=== PATIENT | female | born 1990 | race African-American/Black ===

== ENCOUNTER 2016-11-05 21:52 | Emergency (ER) | payer MEDICAID ==
[~2016-11-05] VITALS: Ht 172.7 cm; Wt 66.0 kg
[~2016-11-05 21:52] MED LIST: CEPH500C3 PO; FIORIC PO; LORTA5 PO; PROM25TA5 PO
[2016-11-05 21:59] VITALS: BP 101/51; PULSE 88; RESP 20; TEMP 98; O2SAT 98
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
[2016-11-05] MEDS: PROPARACAINE HCL 0.5% OPHT SOLN 15 ML BTL RIGHT EYE ONE ×2 (23:20→23:25)
[2016-11-06] MEDS ORDERED: CYCL1TAB29 PO (00:01)
[2016-11-06] MEDS ORDERED: ERYTOIN10 RIGHT EYE (00:01)
[2016-11-06] MEDS ORDERED: NAPR500 PO (00:01)
== END 2016-11-06 00:22 | disposition home or self-care (01) ==
LOC: NEPD 21:52
DX: T14.8 Other injury of unspecified body region (principal); H57.11 Ocular pain, right eye; X58.XXXA Exposure to other specified factors, initial encounter
CPT/HCPCS: 99284

== ENCOUNTER 2017-03-10 17:35 | Emergency (ER) | payer MEDICAID ==
[~2017-03-10] VITALS: Ht 167.6 cm; Wt 72.0 kg
[~2017-03-10 17:35] MED LIST changes: -CEPH500C3 PO; +CYCL10TA PO; +ERYTOIN10 RIGHT EYE; -FIORIC PO; -LORTA5 PO; +NAPR500 PO; -PROM25TA5 PO
--- NOTE | 2017-03-10 17:44 | PD ---
HPI Chief Complaint: Rectal Bleeding Time Seen by Provider: 17:42 Travel History International Travel<30 days: No Contact w/Intl Traveler<30days: No Traveled to known affect area: No History of Present Illness HPI 26-year-old Afro-[place] Citizen female presents the emergency department with a one- week history of rectal pain with DM, constipation, and bleeding DM. Patient denies history of hemorrhoids in the past. Patient states the pain is constant and knifelike. Patient has no history of this in the past. She denies rectal sex or other type activity. Patient states she's been using [id number] stool soft and laxatives without improvement. She denies nausea vomiting or fever. She has no known drug allergies. PFSH Past Medical History Hx Anticoagulant Therapy: No Cardiovascular Problems: No Chemotherapy: No Cerebrovascular Accident: No Diabetes: No Diminished Hearing: No Respiratory: No Immunizations Current: Yes Menopausal: No : 4 Para: 4 Miscarriage: 0 : 1 Tubal Ligation: Yes Past Surgical History Section: Yes (X3) Social History Alcohol Use: No Tobacco Use: Yes Substance Use: No Allergies-Medications (Allergen,Severity, Reaction): Coded Allergies: No Known Allergies (Verified Adverse Reaction, Unknown, 03/10/17) Reported Meds & Prescriptions Reported Meds & Active Scripts Active Rectiv (Nitroglycerin (Intra-Anal)) 0.4 % (W/W) Oin 1 Applic RC BID 60 Days Lidocaine Topical (Lidocaine HCl) 2 % Jel 1 Applic TOPICAL QID Review of Systems Except as stated in HPI: all other systems reviewed are Neg General / Constitutional: No: Fever Eyes: No: Visual changes HENT: No: Headaches Cardiovascular: No: Chest Pain or Discomfort Respiratory: No: Shortness of Breath Gastrointestinal: Positive: Constipation, Other (see history present illness), No: Nausea, Vomiting, Abdominal Pain, Hematemesis, Hematochezia Genitourinary: No: Dysuria Musculoskeletal: No: Pain Skin: No Rash Neurologic: No: Weakness Psychiatric: No: Depression Endocrine: No: Polydipsia Hematologic/Lymphatic: No: Easy Bruising Physical Exam Narrative GENERAL: Patient appears in no acute distress. SKIN: Warm and dry. No color. Normal turgor. HEAD: Atraumatic. Normocephalic. EYES: Pupils equal and round. No scleral icterus. No injection or drainage. ENT: No nasal bleeding or discharge. Mucous membranes pink and moist. NECK: Trachea midline. No JVD. CARDIOVASCULAR: Regular rate and rhythm. RESPIRATORY: No accessory muscle use. Clear to auscultation. Breath sounds equal bilaterally. GASTROINTESTINAL: Abdomen soft, non-tender, nondistended. Hepatic and splenic margins not palpable. RECTAL: Rectal area is examined with nursing staff present. Outer area appears normal. There appears to be a small fissure at the 3 o'clock position without active bleeding. No signs of external hemorrhoids are noted. Internal exam very tender with spasming internal rectal ring. No internal hemorrhoids are present. MUSCULOSKELETAL: Extremities without clubbing, cyanosis, or edema. No obvious deformities. NEUROLOGICAL: Awake and alert. No obvious cranial nerve deficits. Motor grossly within normal limits. Five out of 5 muscle strength in the arms and legs. Normal speech. PSYCHIATRIC: Appropriate mood and affect; insight and judgment normal. Data Data Last Documented VS Vital Signs Date Time Temp Pulse Resp B/P (MAP) Pulse Ox O2 Delivery O2 Flow Rate FiO2 03/10/17 18:31 03/10/17 17:51 98.3 71 17 99 Room Air Orders Orders Ed Discharge Order (03/10/17 18:07) MDM Medical Decision Making Medical Screen Exam Complete: Yes Emergency Medical Condition: Yes Differential Diagnosis Rectal pain. Constipation. Rectal fissure. Narrative Course Patient is felt to have a rectal fissure which will be treated with 2% lidocaine jelly 4 times a day 30 mL was dispensed. Patient also to apply nitroglycerin gel 0.4% rectally twice a day 8 weeks. Patient is recommended to use glycerin suppositories, which are available over- the-counter to help soften stool. Patient is to continue MiraLAX or other [id number]-[id number] stool softener as well. Patient to follow-up with Dr. Estrada if symptoms do not improve the above treatment plan. Diagnosis Primary Impression: Rectal fissure Additional Impression: Rectal or anal pain Referrals: Stevenson Estrada MD as needed Patient Instructions: General Instructions, Rectal Bleeding (ED) Departure Forms: Work Release Enter return to work date: Mar 13, 2017 Additional Instructions: Patient is felt to have a rectal fissure which will be treated with 2% lidocaine jelly 4 times a day 30 mL was dispensed. Patient also to apply nitroglycerin gel 0.4% rectally twice a day 8 weeks. Patient is recommended to use glycerin suppositories, which are available over- the-counter to help soften stool. Patient is to continue MiraLAX or other [id number]-[id number] stool softener as well. Patient to follow-up with Dr. Estrada if symptoms do not improve the above treatment plan. Med/Other Pt SpecificInfo: Prescription(s) given Scripts Nitroglycerin (Intra-Anal) (Rectiv) 0.4 % (W/W) Oin 1 APPLIC RC BID for 60 Days, TUBE Prov: Santos Baires MD 03/10/17 Lidocaine Topical (Lidocaine Topical) 2 % Jel 1 APPLIC TOPICAL QID for Pain Management, #30 GM 0 Refills Prov: Santos Baires MD 03/10/17 Disposition: 01 DISCHARGE HOME Condition: Stable Stevenson Gaston Mar 10, 2017 17:44
[2017-03-10 17:51] VITALS: BP 101/52; PULSE 71; RESP 17; TEMP 98.3; O2SAT 99
[2017-03-10] MEDS ORDERED: NITR0.4O RC (17:57)
[2017-03-10] MEDS ORDERED: LIDO2GEL11 TOPICAL (17:57)
== END 2017-03-10 18:33 | disposition home or self-care (01) ==
LOC: NEPC 17:35
DX: K60.2 Anal fissure, unspecified (principal); K62.89 Other specified diseases of anus and rectum; K59.00 Constipation, unspecified; Z79.899 Other long term (current) drug therapy; Z72.0 Tobacco use
CPT/HCPCS: 99284

== ENCOUNTER 2017-04-01 13:55 | Emergency (ER) | payer MEDICAID ==
[~2017-04-01] VITALS: Ht 172.7 cm; Wt 65.0 kg
[~2017-04-01 13:55] MED LIST changes: -CYCL10TA PO; -ERYTOIN10 RIGHT EYE; +LIDO2GEL11 TOPICAL; -NAPR500 PO; +NITR0.4O RC
[2017-04-01 13:57] VITALS: BP 134/70; PULSE 73; RESP 12; TEMP 98.1; O2SAT 98
[2017-04-01] MEDS ORDERED: ORPHENADRINE INJ 60 MG/2 ML AMP IM ONE (14:45)
[2017-04-01] MEDS ORDERED: KETOROLAC TROMETHAMINE 60 MG/2 ML (IM) VIAL IM ONE (14:45)
[2017-04-01] MEDS ORDERED: BACL10TA PO (14:50)
[2017-04-01] MEDS ORDERED: MEDR4PAK PO (14:50)
--- NOTE | 2017-04-01 14:50 | PD ---
HPI Chief Complaint: Pain: Acute or Chronic Time Seen by Provider: 14:24 Travel History International Travel<30 days: No Contact w/Intl Traveler<30days: No Traveled to known affect area: No History of Present Illness HPI The patient is a 27-year-old female who presents to the emergency department for back pain with radiculopathy. Patient notes an intermittent history of back pain with radiculopathy, the back pain starts in the lower midline, radiates down the left leg to the toes of the left foot. Occasionally the patient states she will have weakness or numbness of the affected leg. She does note her symptoms are intermittent and moderate. The pain is worse with certain activities as well as certain positions. She does occasionally complain of numbness and tingling to left lower extremity. She denies any urinary incontinence or fecal incontinence. She denies any trauma to the back. She denies any IV drug abuse. The patient does not have a primary physician. PFSH Past Medical History Hx Anticoagulant Therapy: No Cardiovascular Problems: No Chemotherapy: No Cerebrovascular Accident: No Diabetes: No Diminished Hearing: No Respiratory: No Immunizations Current: Yes ?: Not Menopausal: No : 4 Para: 4 Miscarriage: 0 : 1 Tubal Ligation: Yes Past Surgical History Section: Yes (X3) Social History Alcohol Use: Yes (OCC) Tobacco Use: Yes Substance Use: No Allergies-Medications (Allergen,Severity, Reaction): Coded Allergies: No Known Allergies (Verified Adverse Reaction, Unknown, 04/01/17) Reported Meds & Prescriptions Reported Meds & Active Scripts Active Rectiv (Nitroglycerin (Intra-Anal)) 0.4 % (W/W) Oin 1 Applic RC BID 60 Days Lidocaine Topical (Lidocaine HCl) 2 % Jel 1 Applic TOPICAL QID Review of Systems Except as stated in HPI: all other systems reviewed are Neg General / Constitutional: No: Fever Genitourinary: No: Dysuria, Incontinence Musculoskeletal: Positive: Weakness, Pain Neurologic: Positive: Paresthesia, Sensory Disturbance, No: Incontinence Physical Exam Narrative GENERAL: Awake, alert, pleasant 27-year-old female who appears her stated age and is in no acute respiratory distress. The patient was examined in the presence of a female nurse. SKIN: Focused skin assessment warm/dry. HEAD: Atraumatic. Normocephalic. EYES: No injection or drainage. GASTROINTESTINAL: Abdomen soft, non-tender, nondistended. No suprapubic tenderness. Back: No CVA tenderness. No tenderness of the midline lumbar vertebrae. No tenderness of the sacroiliac. No tenderness of the left gluteal. MUSCULOSKELETAL: No obvious deformities. No clubbing. No cyanosis. No edema. Strength with flexion of the great toes bilateral 5 out of 5. Plantar flexion is 5 out of 5. Extension is 5 out of 5. Extension of the knee was 5 out of 5. Flexion of left hip is 5 out of 5. Abduction/adduction bilaterally is 5 out of 5. Positive dorsalis pedal pulses. Positive straight leg on the left at 30 . NEUROLOGICAL: Awake and alert. No obvious cranial nerve deficits. Motor grossly within normal limits. Normal speech. Sensation was intact to the medial , lateral, dorsal aspect the left foot. Downward Babinski. PSYCHIATRIC: Appropriate mood and affect; insight and judgment normal. Data Data Last Documented VS Vital Signs Date Time Temp Pulse Resp B/P (MAP) Pulse Ox O2 Delivery O2 Flow Rate FiO2 04/01/17 13:57 98.1 73 12 134/70 (91) 98 Orders Orders Ed Discharge Order (04/01/17 14:24) Ketorolac Inj (Toradol Inj) (04/01/17 14:45) Orphenadrine Inj (Norflex Inj) (04/01/17 14:45) MDM Medical Decision Making Medical Screen Exam Complete: Yes Emergency Medical Condition: Yes Medical Record Reviewed: Yes Differential Diagnosis Differential diagnosis includes herniated disc, back pain with radiculopathy, spinal stenosis, sciatica, cauda equina, musculoskeletal strain. Narrative Course The patient's pain appears to be related to either a herniated disc and/or spinal stenosis. The patient was administered an injection of Toradol and Norflex. I will discharge patient home on Medrol Dosepak and baclofen. She is advised to follow-up with a primary physician for referral to physical therapy. If symptoms persist after physical therapy she may benefit from outpatient MRI and neurosurgical evaluation. She is advised to return if symptoms worsen or progress. Diagnosis Primary Impression: Back pain with left-sided radiculopathy Referrals: [facility] Patient Instructions: General Instructions Additional Instructions: Medications as directed. Follow-up with a primary physician for outpatient referral to physical therapy. Return if symptoms worsen or progress. Work excuse for 2 days. Med/Other Pt SpecificInfo: Prescription(s) given Scripts Baclofen (Baclofen) 10 Mg Tab 10 MG PO Q8HR for 7 Days, TAB 0 Refills Prov: Evelio Caro MD 04/01/17 Methylprednisolone Dosepak (Medrol Dosepak) 4 Mg Dspk 4 MG PO DIRECTED, #1 DSPK 0 Refills Per Pharmacist direction Prov: Evelio Caro MD 04/01/17 Disposition: 01 DISCHARGE HOME Condition: Stable Evelio Caro MD Apr 01, 2017 14:50
== END 2017-04-01 16:01 | disposition home or self-care (01) ==
LOC: NEPD 13:55
DX: M54.9 Dorsalgia, unspecified (principal)
CPT/HCPCS: 99284; J1885; J2360

== ENCOUNTER 2017-08-05 18:38 | Emergency (ER) | payer MEDICAID ==
[~2017-08-05] VITALS: Ht 172.7 cm; Wt 65.0 kg
[~2017-08-05 18:38] MED LIST changes: +BACL10TA PO; +MEDR4PAK PO
[2017-08-05 18:43] VITALS: BP 140/91; PULSE 88; RESP 17; TEMP 98.1; O2SAT 100
--- NOTE | 2017-08-05 19:57 | PD ---
HPI Chief Complaint: Cold / Flu Symptoms Time Seen by Provider: 19:56 Travel History International Travel<30 days: No Contact w/Intl Traveler<30days: No Traveled to known affect area: No History of Present Illness HPI 27-year-old female came to the emergency room with history of headache and facial pain for past 4 days. She has been experiencing nasal congestion and some cough. The initial part of her illness patient had some fever but the fever is gone now. She says it really hurts to blow her nose and touch her face. Headache and facial pain is worse when she tries to put her head down. Vital signs were stable otherwise. Patient is a smoker. She is otherwise a healthy person. [facility] Past Medical History Narrative Medical List of her past medical, surgical, social and family history is reviewed from the nursing note. Hx Anticoagulant Therapy: No Cardiovascular Problems: No Chemotherapy: No Cerebrovascular Accident: No Diabetes: No Diminished Hearing: No Respiratory: No Immunizations Current: Yes ?: Not LMP: 07/2017 Menopausal: No : 4 Para: 4 Miscarriage: 0 : 1 Tubal Ligation: Yes Past Surgical History Section: Yes (X3) Social History Alcohol Use: Yes (OCC) Tobacco Use: Yes Substance Use: No Allergies-Medications (Allergen,Severity, Reaction): Coded Allergies: No Known Allergies (Verified Adverse Reaction, Unknown, 08/05/17) Comments No known drug allergies. Reported Meds & Prescriptions Reported Meds & Active Scripts Active Nasonex Nasal Tilden (Mometasone Furoate) 50 Mcg/Act Naspr 2 Tilden EACH NARE DAILY Augmentin (Amoxicillin-Clavulanate) 875-125 Mg Tab 1 Tab PO BID 10 Days Narrative Medication List of her home medications reviewed from the nursing note Review of Systems Except as stated in HPI: all other systems reviewed are Neg HENT: Positive: Congestion Physical Exam Narrative GENERAL: Awake, alert, moderate distress SKIN: Focused skin assessment warm/dry. HEAD: Atraumatic. Normocephalic. EYES: Pupils equal and round. No scleral icterus. No injection or drainage. ENT: No nasal bleeding or discharge. Mucous membranes pink and moist. Facial tenderness on the frontal, ethmoidal and maxillary sinus NECK: Trachea midline. No JVD. CARDIOVASCULAR: Regular rate and rhythm. No murmur appreciated. RESPIRATORY: No accessory muscle use. Clear to auscultation. Breath sounds equal bilaterally. GASTROINTESTINAL: Abdomen soft, non-tender, nondistended. Hepatic and splenic margins not palpable. MUSCULOSKELETAL: No obvious deformities. No clubbing. No cyanosis. No edema. NEUROLOGICAL: Awake and alert. No obvious cranial nerve deficits. Motor grossly within normal limits. Normal speech. PSYCHIATRIC: Appropriate mood and affect; insight and judgment normal. Data Data Last Documented VS Vital Signs Date Time Temp Pulse Resp B/P (MAP) Pulse Ox O2 Delivery O2 Flow Rate FiO2 08/05/17 18:43 98.1 88 17 140/91 (107) 100 Orders Orders Ibuprofen (Motrin) (08/05/17 20:30) Ed Discharge Order (08/05/17 20:37) [facility] Medical Decision Making Medical Screen Exam Complete: Yes Emergency Medical Condition: Yes Medical Record Reviewed: Yes Differential Diagnosis Pansinusitis, viral illness Narrative Course 8:36 PM patient was given ibuprofen for her pain. She will be discharged home on prescription for Augmentin and Nasonex nasal spray. She has been given instructions for smoking cessation. Procedures EKG Prior to Arrival: No Diagnosis Primary Impression: Sinusitis Qualified Codes: J01.40 - Acute pansinusitis, unspecified Additional Impression: Needs smoking cessation education Referrals: Primary Care Physician Additional Instructions: Take the medication as per the prescription direction. You can take Tylenol/ Motrin/ibuprofen/Advil for your headache until the symptoms subside. Return to the ER if condition worsens or any other new concerns. Med/Other Pt SpecificInfo: Prescription(s) given Scripts Mometasone Nasal Tilden (Nasonex Nasal Tilden) 50 Mcg/Act Naspr 2 SPRAY EACH NARE DAILY for Allergy Management, #1 BOTTLE 0 Refills Prov: Holly Parks MD 08/05/17 Amoxicillin-Clavulanate (Augmentin) 875-125 Mg Tab 1 TAB PO BID for Infection for 10 Days, #20 TAB 0 Refills Prov: Holly Parks MD 08/05/17 Disposition: 01 DISCHARGE HOME Condition: Stable Holly Parks MD Aug 05, 2017 19:57
[2017-08-05] MEDS ORDERED: IBUPROFEN 600 MG TAB PO ONE (20:30)
[2017-08-05] MEDS ORDERED: AUGM875T3 PO (20:33)
[2017-08-05] MEDS ORDERED: MOME17I EACH NARE (20:33)
== END 2017-08-05 20:42 | disposition home or self-care (01) ==
LOC: NEPD 18:38
DX: J01.40 Acute pansinusitis, unspecified (principal); R05 Cough; Z72.0 Tobacco use
CPT/HCPCS: 99283

== ENCOUNTER 2017-08-26 20:29 | Emergency (ER) | payer MEDICAID ==
[~2017-08-26] VITALS: Ht 172.7 cm; Wt 65.0 kg
[~2017-08-26 20:29] MED LIST changes: +AUGM875T3 PO; -BACL10TA PO; -LIDO2GEL11 TOPICAL; -MEDR4PAK PO; +MOME17I EACH NARE; -NITR0.4O RC
[2017-08-26 20:44] VITALS: BP 118/83; PULSE 85; RESP 20; TEMP 98.7; O2SAT 100
--- NOTE | 2017-08-26 21:11 | PD ---
HPI Chief Complaint: Oral / Dental Pain or Problem Time Seen by Provider: 20:56 Travel History International Travel<30 days: No Contact w/Intl Traveler<30days: No Traveled to known affect area: No History of Present Illness HPI 27-year-old female came to the emergency room with history of dental pain. Patient says that her left upper molar is hurting. She has a cracked tooth there. Patient seems to be all over the place and sobbing because of the pain. Her and babies in the room as well. Patient says she went to [facility] yesterday and they sent her home on prescription for pain medication and antibiotic but it does not seem to be working. They have given her a dentist name to follow-up with and she is waiting to hear back from them. Meanwhile the pain was excruciating and hence she came to this hospital. Vital signs are stable. FOR[facility]LY [facility] Past Medical History Narrative Medical List of her past medical, surgical, social and family history is reviewed from the nursing note. Medical History: Denies Significant Hx Hx Anticoagulant Therapy: No Cardiovascular Problems: No Chemotherapy: No Cerebrovascular Accident: No Diabetes: No Diminished Hearing: No Respiratory: No Immunizations Current: Yes Tetanus Vaccination: < 5 Years Influenza Vaccination: No ?: Not LMP: 08/19/2017 Menopausal: No : 4 Para: 4 Miscarriage: 0 : 1 Tubal Ligation: Yes Past Surgical History Section: Yes (X3) Social History Alcohol Use: Yes (OCC) Tobacco Use: No Substance Use: No Allergies-Medications (Allergen,Severity, Reaction): Coded Allergies: No Known Allergies (Verified Adverse Reaction, Unknown, 08/26/17) Comments No known drug allergies. Reported Meds & Prescriptions Reported Meds & Active Scripts Active Nasonex Nasal [place] (Mometasone Furoate) 50 Mcg/Act Naspr 2 [place] EACH NARE DAILY Augmentin (Amoxicillin-Clavulanate) 875-125 Mg Tab 1 Tab PO BID 10 Days Narrative Medication List of her home medications reviewed from the nursing note. Review of Systems Except as stated in HPI: all other systems reviewed are Neg HENT: Positive: Dental Difficulties Physical Exam Narrative GENERAL: Awake, alert, extremely anxious, moderate distress SKIN: Focused skin assessment warm/dry. HEAD: Atraumatic. Normocephalic. EYES: Pupils equal and round. No scleral icterus. No injection or drainage. ENT: No nasal bleeding or discharge. Mucous membranes pink and moist. Poor dental condition. Caries of #12 and 14. No facial swelling NECK: Trachea midline. No JVD. CARDIOVASCULAR: Regular rate and rhythm. No murmur appreciated. RESPIRATORY: No accessory muscle use. Clear to auscultation. Breath sounds equal bilaterally. GASTROINTESTINAL: Abdomen soft, non-tender, nondistended. Hepatic and splenic margins not palpable. MUSCULOSKELETAL: No obvious deformities. No clubbing. No cyanosis. No edema. NEUROLOGICAL: Awake and alert. No obvious cranial nerve deficits. Motor grossly within normal limits. Normal speech. PSYCHIATRIC: Appropriate mood and affect; insight and judgment normal. Data Data Last Documented VS Vital Signs Date Time Temp Pulse Resp B/P (MAP) Pulse Ox O2 Delivery O2 Flow Rate FiO2 08/26/17 20:44 98.7 85 20 118/83 (95) 100 Orders Orders Acetamin-Hydrocod 325-5 Mg ([place] 5-325 (08/26/17 21:15) Bupivacaine Pf 0.5% Inj (Marcaine Pf 0.5 (08/26/17 21:45) Lidocaine 1% Inj (Xylocaine 1% Inj) (08/26/17 21:45) MDM Medical Decision Making Medical Screen Exam Complete: Yes Emergency Medical Condition: Yes Medical Record Reviewed: Yes Differential Diagnosis Dental caries, toothache Narrative Course 9:07 PM patient we will be getting pain medication here. I have offered her dental block. She will let the nurse know if she wants to get it. Otherwise she will be discharged home and have asked her to continue taking the antibiotic and see a dentist. 9:56 PM patient agreed to the dental block and I just finished doing the procedure. She tolerated it well. She says there was instant relief after the anesthetic infiltration. I will discharge her home. Procedures Procedure Narrative Dental block: 4 mL of 0.5% bupivacaine mixed with 2% of lidocaine 1:1 strength was infiltrated into the gingivo-buccal groove adjacent to the #14 tooth. Patient tolerated the procedure well. Relief was within 30 seconds. EKG Prior to Arrival: No Diagnosis Primary Impression: Caries Additional Impression: Dentalgia Additional Instructions: Please follow-up with the dentist was name has been given to you from [facility]. Continue taking the antibiotic and the pain medication prescription given to you from [facility] until you have seen the dentist. Eat pured food for next 12-24 hours that does not require to be chewed too much because he will be other risk of biting into your cheek. Disposition: 01 DISCHARGE HOME Condition: Holly Alfaro MD August 26, 2017 20:57
[2017-08-26] MEDS ORDERED: ACETAMINOPHEN/HYDROcodone 325 MG/5 MG TAB PO ONE (21:15)
[2017-08-26] MEDS ORDERED: BUPIVACAINE HCL PF 0.5% 10 ML VIAL NERV BLOCK ONE (21:45)
[2017-08-26] MEDS ORDERED: LIDOCAINE HCL 1% 20 ML VIAL INFIL ONE (21:45)
== END 2017-08-26 22:20 | disposition home or self-care (01) ==
LOC: NEPD 20:29
DX: K02.9 Dental caries, unspecified (principal); K08.89 Other specified disorders of teeth and supporting structures
CPT/HCPCS: 64400

== ENCOUNTER 2017-09-04 03:16 | Emergency (ER) | payer MEDICAID ==
[2017-09-04 03:20] VITALS: BP 102/60; PULSE 89; RESP 15; TEMP 98.6; O2SAT 99
--- NOTE | 2017-09-04 03:33 | PD ---
HPI Chief Complaint: Oral / Dental Pain or Problem Time Seen by Provider: 03:27 Travel History International Travel<30 days: No Contact w/Intl Traveler<30days: No Traveled to known affect area: No History of Present Illness HPI 27-year-old black female presents emergency department we will complains of dental pain. She states that she has had dental caries for some time now. She was seen in the ER on the 12th of this month for the same problem. She has not been able to see a dentist. Patient reports that she has an appointment with a dentist in [place] in 2 weeks. She states the pain is severe. She has taken her medications without relief. No fever chills. No earache, cough, congestion, nausea, vomiting, abdominal pain or urinary symptoms. History Past Medical Histgory Medical History: Denies Significant Hx Tetanus Vaccination: < 5 Years LMP: 08/15/2017 Menopausal: No Hx Chemotherapy: No Social History Alcohol Use: Yes (OCC) Tobacco Use: No Allergies-Medications (Allergen,Severity, Reaction): Coded Allergies: No Known Allergies (Verified Adverse Reaction, Unknown, 09/04/17) Reported Meds & Prescriptions Reported Meds & Active Scripts Active Nasonex Nasal [place] (Mometasone Furoate) 50 Mcg/Act Naspr 2 [place] EACH NARE DAILY Augmentin (Amoxicillin-Clavulanate) 875-125 Mg Tab 1 Tab PO BID 10 Days Review of Systems General / Constitutional: No: Fever Eyes: No: Visual changes HENT: Positive: Dental Difficulties, No: Headaches, Gingival Bleeding Cardiovascular: No: Chest Pain or Discomfort Respiratory: No: Shortness of Breath Gastrointestinal: No: Abdominal Pain Genitourinary: No: Dysuria Musculoskeletal: No: Pain Skin: No Rash Neurologic: No: Weakness Psychiatric: No: Depression Endocrine: No: Polydipsia Hematologic/Lymphatic: No: Easy Bruising Physical Exam Narrative GENERAL: Well-developed, well-nourished in no acute distress. Nontoxic appearing. HEAD: Normocephalic, atraumatic. EYES: Pupils equal round and reactive. Extraocular motions intact. No scleral icterus. No injection or drainage. ENT: TMs clear without erythema. The external auditory canals clear. Nose: clear . Posterior pharynx is pink and moist. No tonsillar edema or exudate. Uvula midline. Airway patent. Patient points to her tooth #15 as a source of her pain. She also has a large dental carry and tooth #13. NECK: Trachea midline.Supple, nontender, moves head freely. No central bony tenderness or spasm. CARDIOVASCULAR: Regular rate and rhythm without murmurs, gallops, or rubs. RESPIRATORY: Clear to auscultation. Breath sounds equal bilaterally. No wheezes , rales, or rhonchi. GASTROINTESTINAL: Abdomen soft, non-tender, nondistended. No hepato-splenomegaly , or palpable masses. No guarding. EXTREMITIES: No clubbing, cyanosis, or edema. No joint tenderness, effusion, or edema noted. BACK: Nontender without deformity or crepitance. No flank tenderness. Data Data Last Documented VS Vital Signs Date Time Temp Pulse Resp B/P (MAP) Pulse Ox O2 Delivery O2 Flow Rate FiO2 09/04/17 03:20 98.6 89 15 102/60 (74) 99 MDM Medical Screen Exam Complete: Yes Emergency Medical Condition: No Differential Diagnosis MDM: Moderate Differential diagnoses: Dental abscess, dental caries, osteitis, cellulitis Narrative Course A medical screening exam was performed: At the time of evaluation the presenting medical condition was determined not to be of an emergent nature. The patient was given the option of receiving additional care, but declined. Patient was given options for additional community resources from which to obtain care. The Patient Has Been advised to seek medical attention for their presenting complaint. The patient has been advised to return to the ER at any time if an emergent condition develops. Primary Impression: Encounter for medical screening examination Condition: Baltazar Carrera September 04, 2017 03:33
== END 2017-09-04 10:39 | disposition left against medical advice (07) ==
LOC: NEPD 03:16
DX: K02.9 Dental caries, unspecified (principal)
CPT/HCPCS: 99281

== ENCOUNTER 2017-11-26 20:13 | Observation (INO) ==
[2017-11-26] MEDS: Sod Chloride 0.9% Inj 1,000 ML IV.CONT SCH (21:04)
[2017-11-26 21:05] LABS: Baso # (Auto) 0.2 th/mm3 (0.0-0.2); Baso % (Auto) 2.2 % (0.0-2.0); Eos # (Auto) 0.1 th/mm3 (0.0-0.4); Hemoglobin 13.2 gm/dL (11.6-15.3); Lymph # (Auto) 2.9 th/mm3 (1.0-4.8); Lymph % (Auto) 40.6 % (9.0-44.0); Mean Corpuscular HGB Conc 33.9 % (32.0-36.0); Mean Corpuscular Hemoglobin 31.7 pg (27.0-34.0); Mean Corpuscular Volume 93.6 fL (80.0-100.0); Mean Platelet Volume 8.1 fL (7.0-11.0); Mono # (Auto) 0.4 th/mm3 (0.0-0.9); Mono % (Auto) 6.2 % (0.0-8.0); Neut # (Auto) 3.6 th/mm3 (1.8-7.7); Platelet Count 314 th/mm3 (150-450); Red Blood Count 4.17 mil/mm3 (4.00-5.30); Red Cell Distribution Width 12.9 % (11.6-17.2); White Blood Count 7.2 th/mm3 (4.0-11.0)
--- NOTE | 2017-11-26 21:08 | ED ---
HPI General Chief Complaint: Neuro Symptoms/Deficit Stated Complaint: lft side pain/numbness since lastnight Time Seen by Provider: 11/26/17 20:34 Source: patient Mode of arrival: ambulatory Limitations: no limitations Related Data Home Medications Medication Instructions Recorded Confirmed No Known Home Medications 11/26/17 11/26/17 Allergies Allergy/AdvReac Type Severity Reaction Status Date / Time No Known Allergies AdvReac Unknown Uncoded 09/04/17 03:25 Review of Systems ROS: all other systems reviewed are negative (Patient presents with multiple episodes of suddenly onset weakness to the left arm only with numbness. Episodes last approximately 10 minutes prior to complete resolution. One was so sudden that she dropped her baby because of the weakness of the left arm. Patient states these episodes occur with or without activity; and she cannot remember any coldness or pain of the arm associated with these episodes. Generally good health with no significant problems. Patient does not admit to drugs other than cannabis in the past. Patient does not take any medications on a regular basis. There are no symptoms at the present time.) [facility] History History Provided By: Patient Surgical History Surgical History History of tubal ligation (Acute) Social History Social History Substance History: No History of Abuse Smoking Status: Current some day smoker Tobacco Type: Cigarettes How Often Do You Have a Drink Containing Alcohol: Monthly or less Recent Travel in [facility] within the Last 8 Weeks: No Recent Out of Country Travel within the Last 8 Weeks: No Exam Narrative Exam Narrative: GENERAL: [-] SKIN: Focused skin assessment warm/dry. HEAD: Atraumatic. Normocephalic. EYES: Pupils equal and round. No scleral icterus. No injection or drainage. ENT: No nasal bleeding or discharge. Mucous membranes pink and moist. NECK: Trachea midline. No JVD. No bruit CARDIOVASCULAR: Regular rate and rhythm. No murmur appreciated. RESPIRATORY: No accessory muscle use. Clear to auscultation. Breath sounds equal bilaterally. GASTROINTESTINAL: Abdomen soft, non-tender, nondistended. Hepatic and splenic margins not palpable. MUSCULOSKELETAL: No obvious deformities. No clubbing. No cyanosis. No edema. NEUROLOGICAL: Awake and alert. No obvious cranial nerve deficits. Motor grossly within normal limits. Normal speech. PSYCHIATRIC: Appropriate mood and affect; insight and judgment normal. Course Reevaluation(s) Reevaluation #1: Case discussed thoroughly with Dr. Almanzar. Patient stable with no evolution of symptoms since arrival. Time: 20:50 Reevaluation #2: Results of CTA of head and neck are done and show no significant vascular abnormality. As per Dr. Almanzar's recommendation the patient is being admitted for an MRI and neurologic evaluation in the morning Time: 04:20 Initial Documented Vital Signs Temperature 98.4 F 11/26/17 20:30 Pulse Rate 64 11/26/17 20:30 Respiratory Rate 16 11/26/17 20:30 Blood Pressure 119/67 11/26/17 20:30 Pulse Oximetry 98 11/26/17 20:30 Last Documented Vital Signs Temperature 98.4 F 11/26/17 20:30 Pulse Rate 66 11/27/17 02:40 Respiratory Rate 16 11/27/17 02:40 Blood Pressure 102/61 11/27/17 02:40 Pulse Oximetry 99 11/27/17 02:40 Critical Care Time Critical Care Time: Yes Total Critical Care Time: 60 Attestation: N/A Medical Decision Making Differential Diagnosis Differential Diagnosis: Psychogenic; neurologic etiology; vascular etiology; physiologic constriction of neurovascular structures leading to the arm Lab Data Result diagrams: 11/26/17 20:53 Lab Results 11/26/17 11/26/17 11/26/17 Range/Units 20:53 20:53 20:53 CBC w Diff Auto diff final WBC 7.2 (4.0-11.0) th/mm3 RBC 4.17 (4.00-5.30) mil/mm3 Hgb 13.2 (11.6-15.3) gm/dL Hct 39.0 (35.0-46.0) % MCV 93.6 (80.0-100.0) fL MCH 31.7 (27.0-34.0) pg MCHC 33.9 (32.0-36.0) % RDW 12.9 (11.6-17.2) % Plt Count 314 (150-450) th/mm3 MPV 8.1 (7.0-11.0) fL Neut % (Auto) 50.0 (16.0-70.0) % Lymph % (Auto) 40.6 (9.0-44.0) % [place] % (Auto) 6.2 (0.0-8.0) % Eos % (Auto) 1.0 (0.0-4.0) % Baso % (Auto) 2.2 H (0.0-2.0) % Neut # (Auto) 3.6 (1.8-7.7) th/mm3 Lymph # (Auto) 2.9 (1.0-4.8) th/mm3 [place] # (Auto) 0.4 (0.0-0.9) th/mm3 Eos # (Auto) 0.1 (0.0-0.4) th/mm3 Baso # (Auto) 0.2 (0.0-0.2) th/mm3 WBC Differential . Differential Comment . PT 10.6 (9.8-11.6) sec INR 1.0 Ratio APTT 27.8 (24.3-30.1) sec Fibrinogen 232 (227-377) mg/dL POC Glucose (68-110) mg/dl Total Creatine Kinase 86 (26-192) U/L Troponin I Less than 0.02 L (0.02-0.05) ng/mL Urine Color (Yellw/Straw) Urine Clarity (Clear) Urine pH (5.0-8.5) Ur Specific [place] (1.002-1.035) Urine Protein (Neg-Trace) mg/dL Urine Glucose (UA) (Negative) mg/dL Urine Ketones (Negative) mg/dL Urine Occult Blood (Negative) Urine Nitrate (Negative) Urine Bilirubin (Negative) Urine Urobilinogen (Less than 2) mg/dL Ur Leukocyte Esterase (Negative) Urine RBC (0-3) /hpf Urine WBC (0-5) /hpf Ur Squamous Epith Cells (0-5) /hpf Micro UA Comment Urine Culture Comments Blood Type Blood Type Recheck Antibody Screen 11/26/17 11/26/17 11/26/17 Range/Units 20:53 21:33 21:50 CBC w Diff WBC (4.0-11.0) th/mm3 RBC (4.00-5.30) mil/mm3 Hgb (11.6-15.3) gm/dL Hct (35.0-46.0) % MCV (80.0-100.0) fL MCH (27.0-34.0) pg MCHC (32.0-36.0) % RDW (11.6-17.2) % Plt Count (150-450) th/mm3 MPV (7.0-11.0) fL Neut % (Auto) (16.0-70.0) % Lymph % (Auto) (9.0-44.0) % [place] % (Auto) (0.0-8.0) % Eos % (Auto) (0.0-4.0) % Baso % (Auto) (0.0-2.0) % Neut # (Auto) (1.8-7.7) th/mm3 Lymph # (Auto) (1.0-4.8) th/mm3 [place] # (Auto) (0.0-0.9) th/mm3 Eos # (Auto) (0.0-0.4) th/mm3 Baso # (Auto) (0.0-0.2) th/mm3 WBC Differential Differential Comment PT (9.8-11.6) sec INR Ratio APTT (24.3-30.1) sec Fibrinogen (227-377) mg/dL POC Glucose 104 (68-110) mg/dl Total Creatine Kinase (26-192) U/L Troponin I (0.02-0.05) ng/mL Urine Color Yellow (Yellw/Straw) Urine Clarity Clear (Clear) Urine pH 6.0 (5.0-8.5) Ur Specific [place] 1.025 (1.002-1.035) Urine Protein Negative (Neg-Trace) mg/dL Urine Glucose (UA) Negative (Negative) mg/dL Urine Ketones Negative (Negative) mg/dL Urine Occult Blood Moderate H (Negative) Urine Nitrate Negative (Negative) Urine Bilirubin Negative (Negative) Urine Urobilinogen 0.2 (Less than 2) mg/dL Ur Leukocyte Esterase Negative (Negative) Urine RBC 4-15 H (0-3) /hpf Urine WBC 0-5 (0-5) /hpf Ur Squamous Epith Cells 6-10 H (0-5) /hpf Micro UA Comment Culture not ind Urine Culture Comments Culture not ind Blood Type A Negative Blood Type Recheck Required Antibody Screen Negative 11/27/17 Range/Units 03:39 CBC w Diff WBC (4.0-11.0) th/mm3 RBC (4.00-5.30) mil/mm3 Hgb (11.6-15.3) gm/dL Hct (35.0-46.0) % MCV (80.0-100.0) fL MCH (27.0-34.0) pg MCHC (32.0-36.0) % RDW (11.6-17.2) % Plt Count (150-450) th/mm3 MPV (7.0-11.0) fL Neut % (Auto) (16.0-70.0) % Lymph % (Auto) (9.0-44.0) % [place] % (Auto) (0.0-8.0) % Eos % (Auto) (0.0-4.0) % Baso % (Auto) (0.0-2.0) % Neut # (Auto) (1.8-7.7) th/mm3 Lymph # (Auto) (1.0-4.8) th/mm3 [place] # (Auto) (0.0-0.9) th/mm3 Eos # (Auto) (0.0-0.4) th/mm3 Baso # (Auto) (0.0-0.2) th/mm3 WBC Differential Differential Comment PT (9.8-11.6) sec INR Ratio APTT (24.3-30.1) sec Fibrinogen (227-377) mg/dL POC Glucose 102 (68-110) mg/dl Total Creatine Kinase (26-192) U/L Troponin I (0.02-0.05) ng/mL Urine Color (Yellw/Straw) Urine Clarity (Clear) Urine pH (5.0-8.5) Ur Specific [place] (1.002-1.035) Urine Protein (Neg-Trace) mg/dL Urine Glucose (UA) (Negative) mg/dL Urine Ketones (Negative) mg/dL Urine Occult Blood (Negative) Urine Nitrate (Negative) Urine Bilirubin (Negative) Urine Urobilinogen (Less than 2) mg/dL Ur Leukocyte Esterase (Negative) Urine RBC (0-3) /hpf Urine WBC (0-5) /hpf Ur Squamous Epith Cells (0-5) /hpf Micro UA Comment Urine Culture Comments Blood Type Blood Type Recheck Antibody Screen Imaging Data Radiologist's impression: Chest X-Ray 11/26/17 20:35 CONCLUSION: Negative examination. Head CTA 11/26/17 20:35 CONCLUSION: CTA of the head within normal limits. Neck CTA 11/26/17 21:14 CONCLUSION: 1. Normal CTA of the neck. Carotid arteries are normal. Discharge Plan Discharge Disposition Patient Disposition: 30 Still Patient Physicians Team ED Provider: Brendan Garland Primary Care Provider: Primary Care Lynn,Evelin Attending Provider: Vivian Thakkar Other Providers: Shelton Crowell Discharge Interventions Interventions: Vital Signs Last Done: 11/27/17 02:40 Status ED Status: Admitted Observation Patient
[2017-11-26 21:16] LABS: Activated Partial Thrombo Time 27.8 sec (24.3-30.1); Prothrombin Time 10.6 sec (9.8-11.6)
--- NOTE | 2017-11-26 21:23 | XR ---
EXAM DATE: 11/26/2017 9:19 PM EDT AGE/SEX: 27 years / Female INDICATIONS: Shortness of breath. CLINICAL DATA: This is the patient's initial encounter. Patient reports that signs and symptoms have been present for 1 day and indicates a pain score of 0/10. MEDICAL/SURGICAL HISTORY: None. None. COMPARISON: No prior exams available for comparison. FINDINGS: A single AP view of the chest demonstrates the lungs to be symmetrically aerated without evidence of mass, infiltrate or effusion. The cardiomediastinal contours are unremarkable. Osseous structures a re intact. CONCLUSION: Negative examination. Electronically signed by: Brendan Cary MD 11/26/2017 9:21 PM EDT
[2017-11-26 21:27] LABS: Creatine Kinase 86 U/L (26-192)
[2017-11-26 22:07] LABS: Bilirubin,Urine Negative (Negative); Clarity,Urine Clear (Clear); Color,Urine Yellow (Yellw/Straw); Glucose,Urine (UA) Negative (Negative); Leukocyte Esterase,Urine Negative (Negative); Nitrite,Urine Negative (Negative); Specific Gravity,Urine 1.025 (1.002-1.035); Urobilinogen,Urine 0.2 mg/dL (Less than 2)
[2017-11-26 22:15] LABS: WBC,Urine 0-5 /hpf (0-5)
--- NOTE | 2017-11-26 22:56 | CT ---
EXAM DATE: 11/26/2017 10:46 PM EDT AGE/SEX: 27 years / Female INDICATIONS: Left sided numbness and pain for two days. CLINICAL DATA: This is the patient's initial encounter. Patient reports that signs and symptoms have been present for 2 days and indicates a pain score of 5/10. MEDICAL/SURGICAL HISTORY: None. . Tubal ligation. RADIATION DOSE: 43.19 CTDI (mGy) ; Combined studies COMPARISON: No prior exams available for comparison. TECHNIQUE: Volumetric scanning was performed using a multi-row detector CT scanner during bolus infu eliana of 74 ml Omnipaque 350 (iohexol) nonionic water-soluble contrast as a cumulative dose for multi ple exams. The data was post processed with a variety of visualization algorithms including full vo lume maximum intensity projection, multi-planar sliding thin slab reformation, curved planar reformat ion, and surface rendering techniques. Using automated exposure control and adjustment of the mA and /or kV according to patient size, radiation dose was kept as low as reasonably achievable to obtain o ptimal diagnostic quality images. DICOM format image data is available electronically for review and comparison. FINDINGS: Anterior cerebral arteries and middle cerebral arteries are symmetric and patent bilaterally. [place] mar[place] P1 segment of the right posterior cerebral artery is noted along with a prominent right posterior communicating artery (normal variant). Internal carotid arteries and basilar artery widely patent. L eft vertebral artery is dominant. No evidence of aneurysm or high-grade stenosis. CONCLUSION: CTA of the head within normal limits. Electronically signed by: Brendan Cray MD 11/26/2017 10:54 PM EDT
--- NOTE | 2017-11-26 23:37 | CT ---
EXAM DATE: 11/26/2017 11:27 PM EDT AGE/SEX: 27 years / Female INDICATIONS: Left sided numbness and pain for two days. CLINICAL DATA: This is the patient's initial encounter. Patient reports that signs and symptoms have been present for 2 days and indicates a pain score of 5/10. MEDICAL/SURGICAL HISTORY: None. . Tubal ligation. RADIATION DOSE: 43.19 CTDI (mGy) ; Combined studies COMPARISON: No prior exams available for comparison. TECHNIQUE: Volumetric scanning was performed using a multirow detector CT scanner during bolus infus ion of 74 ml Omnipaque 350 (iohexol) nonionic water-soluble contrast as a single exam dose. The da ta was postprocessed with a variety of visualization algorithms including full-volume maximum intensi ty projection, multiplanar sliding thin-slab reformation, curved-planar reformation, and surface-rend ering techniques. Using automated exposure control and adjustment of the mA and/or kV according to p atient size, radiation dose was kept as low as reasonably achievable to obtain optimal diagnostic shaq lity images. DICOM format image data is available electronically for review and comparison. FINDINGS: Aortic Arch: There is a three-vessel origin of the great vessels from the aorta. No evidence of ost ial narrowing Right Carotid: The common carotid artery is intact. The carotid bulb has a normal configuration wit hout ulceration or narrowing. The internal carotid artery lumen is smooth without stenosis. The ext ernal carotid artery is intact. Left Carotid: The common carotid artery is intact. The carotid bulb has a normal configuration with out ulceration or narrowing. The internal carotid artery lumen is smooth without stenosis. The exte rnal carotid artery is intact. Vertebrals: The vertebral arteries have a symmetric diameter. No stenotic lesions are seen. Percent stenosis is calculated using the diameter of the stenotic region over the diameter of the nor mal distal internal carotid artery. CONCLUSION: 1. Normal CTA of the neck. Carotid arteries are normal. Electronically signed by: Tommy Piper MD 11/26/2017 11:35 PM EDT
[2017-11-27] MEDS ORDERED: Dextrose 50% in Water 50 ML Vial IV.PUSH PRN (03:22)
[2017-11-27] MEDS: Acetaminophen 325 MG Tablet PO PRN (06:23)
[2017-11-27] MEDS: Insulin NovoLOG Aspart Correctional Sugar Inj SQ SCH ×4 (07:42→22:00)
[2017-11-27 10:08] LABS: Albumin 3.4 g/dL (3.4-5.0); Calcium 8.2 mg/dL (8.5-10.1)
[2017-11-27 10:09] LABS: Anion Gap 5 meq/L (5-15); Blood Urea Nitrogen 11 mg/dL (7-18); Carbon Dioxide 25.4 meq/L (21.0-32.0); Chloride 112 meq/L (98-107); Glucose,Random 97 mg/dL (74-106); Potassium 3.8 meq/L (3.5-5.1); Sodium 142 meq/L (136-145)
[2017-11-27 10:12] LABS: Glomerular Filtration Rate Greater Than 89 mL/min (>89); Total Protein 6.7 g/dL (6.4-8.2)
[2017-11-27 10:13] LABS: Alkaline Phosphatase 49 U/L (45-117)
[2017-11-27 10:19] LABS: Alanine Aminotransferase 13 U/L (10-53)
--- NOTE | 2017-11-27 10:22 | MR ---
EXAM DATE: 11/27/2017 10:13 AM EDT AGE/SEX: 27 years / Female INDICATIONS: Left sided weakness. CLINICAL DATA: This is the patient's initial encounter. Patient reports that signs and symptoms have been present for 1 day and indicates a pain score of 0/10. MEDICAL/SURGICAL HISTORY: None. section. Tubal ligation. COMPARISON: [facility], CTA HEAD W CONTRAST W 3D, 11/26/2017. . TECHNIQUE: 3D [id number] MRA was performed. Source images, multiplanar STS MIP, and 3D volum e MIP reconstructions were reviewed. FINDINGS: Examination is limited due to significant motion degradation. Anterior Circulation: Intracranial Carotid Arteries: Patent. KITTY: Patent without obvious aneurysm or large vessel occlusion. MCA: Proximal M2 branches of the left MCA are not well demonstrated. Otherwise, patent without obviou s aneurysm. Posterior Circulation: Distal Vertebral Arteries: Asymmetrical distal vertebral arteries. The right vertebral artery is not well demonstrated. Basilar Artery: Patent without obvious aneurysm or occlusion. CONSULTING PSYCHIATRIST and Cerebellar Branches: origin of the right CONSULTING PSYCHIATRIST. Patent without obvious aneurysm or large vessel occlusion. CONCLUSION: 1. Examination is significantly limited by motion degradation. 2. Proximal M2 branches of the left MCA are not well demonstrated. This is likely artifactual as yes terday's CTA examination demonstrates normal left M2 branches. 3. Otherwise, grossly unremarkable MRA examination of the head. Electronically signed by: Wesly Beatty MD 11/27/2017 10:21 AM EDT
[2017-11-27 10:24] LABS: Aspartate Aminotransferase 10 U/L (15-37)
--- NOTE | 2017-11-27 10:32 | MR ---
EXAM DATE: 11/27/2017 10:13 AM EDT AGE/SEX: 27 years / Female INDICATIONS: Left sided weakness. CLINICAL DATA: This is the patient's initial encounter. Patient reports that signs and symptoms have been present for 1 day and indicates a pain score of 0/10. MEDICAL/SURGICAL HISTORY: None. Tubal ligation. section. COMPARISON: CTA of the head 11-26-2017. TECHNIQUE: Multiplanar, multisequence examination of the brain was performed without contrast. FINDINGS: Cerebrum: The ventricles are normal for age. There is an isolated, 7.5 mm area of increased T2 FLAIR signal and diminished T1 signal intensity in the right anthony radiata. No associated edema or midlin e shift. No regional calcification identified on the previous CTA. There is no blooming artifact on the gradient echo images and therefore, I believe the lesion is unlikely to represent hemorrhage. Th e pituitary gland and suprasellar cistern are normal in configuration. White Matter: No significant signal abnormalities are seen in the white matter. Posterior Fossa: The cerebellum and brainstem are intact. The 4th ventricle is midline. The cerebel lopontine angle is unremarkable. The cerebellar tonsils are normal in position. Diffusion Imaging: The 7.5 mm well-circumscribed area in the high right parietal convexity/anthony ra diata does show increase signal intensity on the diffusion weighted images. However, this appears to represent T2 shine through as the same area shows increased signal on the ADC maps. Extracranial: The visualized portions of the orbits and paranasal sinuses are unremarkable. CONCLUSION: 1. Isolated, 7.5 mm foci of increased T2 and diminished T1 signal intensity in the right anthony radi danielito. 2. There is no blooming artifact associated with this lesion on the gradient echo images and therefo re, I believe the area is unlikely to represent hemorrhage. Diagnostic considerations include a small mass lesion or demyelinating plaque. Postcontrast MR images are suggested for further evaluation. 3. The lesion does show some increase diffusion weighted signal but this appears to represent T2 edgard ne through with increased signal also identified on the ADC maps. Electronically signed by: Socrates Johnson MD 11/27/2017 10:30 AM EDT
--- NOTE | 2017-11-27 11:14 | P.HP ---
History of Present Illness Primary Care Physician: No Primary Care Physician Chief Complaint: Left-sided weakness, paresthesia History of Present Illness: 27-year-old female with no chronic medical illnesses who presented the hospital because of onset of neurological deficits. Patient states that she was at a [employer] on Monday night, she got overheated and diaphoretic. She went to leave and went to go talk to someone but she was trying to speak but nothing would come out. He started developing right visual disturbances, weakness, dizziness. The patient went home and she was still having some weakness sensation, she was able to speak at that time. She started developing paresthesia and weakness in the left upper extremity. She went in laid down on the bed in her symptoms appeared to improve. When she woke up yesterday morning she still had the paresthesia in the left upper extremity. She still had dizziness where she had to hold onto the counter because she thought that she was going to fall forward. She picked her 2-year-old son up in her left arm and she turned her head to the right and suddenly got significantly weak in the left side where she lost strength in her arm and she dropped her son. Because of that she came to emergency department for evaluation. Patient had original workup which did not indicate any acute abnormality. Recommended by ER physician patient be admitted for further evaluation and management. Patient still experiencing some paresthesia in the left upper extremity. However she denies any continue visual disturbances, dysphagia, weakness. - Diagnosis (1) Paresthesia (2) Left-sided weakness (3) Expressive dysphasia Review of Systems All other systems reviewed negative except as stated in HPI Neurologic: Reports abnormal speech, Reports dizziness, Reports lack of coordination, Reports localized weakness, Reports tingling/numbness/burning sensations, Reports tremor(s) [facility] - History History Provided By: Patient - Medical History Medical History: Medical History (Last Updated 11/27/17 @ 11:05 by ODALIS Millard) No pertinent past medical history - Surgical History Surgical History: Surgical History (Last Reviewed 11/27/17 @ 11:05 by ODALIS Millard) History of tubal ligation - Family History Family History: Family History (Last Updated 11/27/17 @ 11:05 by ODALIS Millard) Other No pertinent family history - Tobacco History Second Hand Smoke Exposure: Yes Tobacco Use In Past 30 Days: Yes Smoking Status: Current every day smoker Tobacco Type: Cigarettes Packs Per Day: 1 Years Smoked: 15 - Alcohol History How Often Do You Have a Drink Containing Alcohol: 2 to 4 times a month - Substance Use History Substance History: No History of Abuse - Travel History Recent Travel in the [place] Within the Last 8 Weeks: No Recent Travel Out of the Country Within the Last 8 Weeks: No - Immunization History Tetanus Immunization: >5 Years Hx Influenza Vaccine This Season: No Medications and Allergies Active Medications: Active Medications Acetaminophen (Tylenol) 650 mg PO Q4H PRN PRN Reason: PAIN SCALE 1 TO 10 Last Admin: 11/27/17 06:23 Dose: 650 mg Dextrose (D50w Vial) 50 ml IV.PUSH UNSCH PRN PRN Reason: PER HYPOGLYCEMIA PROTOCOL Glucagon (Glucagon Inj) 1 mg OTHER PRN PRN PRN Reason: for Hypoglycemia Protocol Sodium Chloride (Ns Inj) 1,000 mls @ 70 mls/hr IV.CONT .[id number] YONY Last Admin: 11/26/17 21:04 Dose: 70 mls/hr Insulin Aspart (Novolog Insulin Correctional Sugar Inj) 0 unit SQ ACHS AND 3AM YONY; Protocol Last Admin: 11/27/17 07:42 Dose: Not Given Allergies Allergy/AdvReac Type Severity Reaction Status Date / Time No Known Allergies AdvReac Unknown Uncoded 09/04/17 03:25 Home Medications Medication Instructions Recorded Confirmed Type No Known Home Medications 11/26/17 11/26/17 History Exam Vital signs: Vital Signs 11/26/17 20:30 11/26/17 20:50 11/26/17 21:07 Temperature 98.4 F Pulse Rate 64 78 Respiratory Rate 16 16 Blood Pressure 119/67 100/65 Pulse Oximetry 98 100 100 11/26/17 22:25 11/26/17 23:24 11/27/17 00:35 Temperature Pulse Rate 64 58 L Respiratory Rate 16 16 Blood Pressure 100/61 99/58 L Pulse Oximetry 100 96 99 11/27/17 02:40 11/27/17 05:09 11/27/17 08:00 Temperature 96.3 F L Pulse Rate 66 98 H 54 L Respiratory Rate 16 20 18 Blood Pressure 102/61 112/63 100/56 L Pulse Oximetry 99 99 100 Intake & Output 11/26/17 11/27/17 11/27/17 18:59 06:59 18:59 Intake Total 0 / 0 Balance 0 / 0 Weight 61.2 kg Intake: Oral 0 / 0 Other: # Voids 1 Weight On Admission 61.2 kg Narrative: GENERAL: Well-developed, well-nourished, in no acute distress. alert and orientated HEENT: Head is normocephalic without any lesions or masses noted. Facial features are symmetric. Eyes: Pupils equal round reactive to light. Extraocular muscles are intact. Conjunctivae were clear. Oropharyngeal: Pharynx without any erythema edema. Tongue is midline without deviation. Buccal mucosa is moist without any masses or lesions NECK: Supple without any masses. Trachea midline no deviation. No JVD, no bruits are appreciated CARDIAC: Regular rhythm, regular rate. S1/S2 are heard. No murmurs gallops or rubs. LUNGS: Clear to auscultation bilaterally. No wheeze, rhonchi or rales. No use of accessory muscles on inspiration or expiration. ABDOMEN: Soft, nontender. Nondistended. Bowel sounds heard in all 4 quadrants. No organomegaly or masses. Negative rebound, negative guarding EXTREMITIES: No edema, pulses are equal bilaterally. No cyanosis or clubbing NEUROLOGY: Mood and affect appear appropriate. Cranial nerves II through XII grossly intact. Muscle strength 5/5 in upper and lower extremities bilaterally. Deep tendon reflexes are 2+ in upper and lower extremities bilaterally. Results - Labs CBC & Chem 7: 11/26/17 20:53 11/27/17 08:55 Labs: Laboratory Results - last 24 hr 11/26/17 11/26/17 11/26/17 20:53 20:53 20:53 CBC w Diff Auto diff final WBC 7.2 RBC 4.17 Hgb 13.2 Hct 39.0 MCV 93.6 MCH 31.7 MCHC 33.9 RDW 12.9 Plt Count 314 MPV 8.1 Neut % (Auto) 50.0 Lymph % (Auto) 40.6 [place] % (Auto) 6.2 Eos % (Auto) 1.0 Baso % (Auto) 2.2 H Neut # (Auto) 3.6 Lymph # (Auto) 2.9 [place] # (Auto) 0.4 Eos # (Auto) 0.1 Baso # (Auto) 0.2 WBC Differential . Differential Comment . PT 10.6 INR 1.0 APTT 27.8 Fibrinogen 232 Sodium Potassium Chloride Carbon Dioxide Anion Gap BUN Creatinine Estimated GFR POC Glucose Random Glucose Calcium Total Bilirubin AST ALT Alkaline Phosphatase Total Creatine Kinase 86 Troponin I Less than 0.02 L Total Protein Albumin Urine Color Urine Clarity Urine pH Ur Specific [place] Urine Protein Urine Glucose (UA) Urine Ketones Urine Occult Blood Urine Nitrate Urine Bilirubin Urine Urobilinogen Ur Leukocyte Esterase Urine RBC Urine WBC Ur Squamous Epith Cells Micro UA Comment Urine Culture Comments Blood Type Blood Type Recheck Antibody Screen 11/26/17 11/26/17 11/26/17 20:53 21:33 21:50 CBC w Diff WBC RBC Hgb Hct MCV MCH MCHC RDW Plt Count MPV Neut % (Auto) Lymph % (Auto) [place] % (Auto) Eos % (Auto) Baso % (Auto) Neut # (Auto) Lymph # (Auto) [place] # (Auto) Eos # (Auto) Baso # (Auto) WBC Differential Differential Comment PT INR APTT Fibrinogen Sodium Potassium Chloride Carbon Dioxide Anion Gap BUN Creatinine Estimated GFR POC Glucose 104 Random Glucose Calcium Total Bilirubin AST ALT Alkaline Phosphatase Total Creatine Kinase Troponin I Total Protein Albumin Urine Color Yellow Urine Clarity Clear Urine pH 6.0 Ur Specific [place] 1.025 Urine Protein Negative Urine Glucose (UA) Negative Urine Ketones Negative Urine Occult Blood Moderate H Urine Nitrate Negative Urine Bilirubin Negative Urine Urobilinogen 0.2 Ur Leukocyte Esterase Negative Urine RBC 4-15 H Urine WBC 0-5 Ur Squamous Epith Cells 6-10 H Micro UA Comment Culture not ind Urine Culture Comments Culture not ind Blood Type A Negative Blood Type Recheck Required Antibody Screen Negative 11/27/17 11/27/17 03:39 08:55 CBC w Diff WBC RBC Hgb Hct MCV MCH MCHC RDW Plt Count MPV Neut % (Auto) Lymph % (Auto) [place] % (Auto) Eos % (Auto) Baso % (Auto) Neut # (Auto) Lymph # (Auto) [place] # (Auto) Eos # (Auto) Baso # (Auto) WBC Differential Differential Comment PT INR APTT Fibrinogen Sodium 142 Potassium 3.8 Chloride 112 H Carbon Dioxide 25.4 Anion Gap 5 BUN 11 Creatinine 0.70 Estimated GFR Greater than 89 POC Glucose 102 Random Glucose 97 Calcium 8.2 L Total Bilirubin 0.4 AST 10 L ALT 13 Alkaline Phosphatase 49 Total Creatine Kinase Troponin I Total Protein 6.7 Albumin 3.4 Urine Color Urine Clarity Urine pH Ur Specific [place] Urine Protein Urine Glucose (UA) Urine Ketones Urine Occult Blood Urine Nitrate Urine Bilirubin Urine Urobilinogen Ur Leukocyte Esterase Urine RBC Urine WBC Ur Squamous Epith Cells Micro UA Comment Urine Culture Comments Blood Type Blood Type Recheck Antibody Screen - Imaging Impressions Chest X-Ray 11/26/17 20:35 CONCLUSION: Negative examination. Head CTA 11/26/17 20:35 CONCLUSION: CTA of the head within normal limits. Neck CTA 11/26/17 21:14 CONCLUSION: 1. Normal CTA of the neck. Carotid arteries are normal. Head MRI 11/27/17 03:24 CONCLUSION: 1. Isolated, 7.5 mm foci of increased T2 and diminished T1 signal intensity in the right anthony radiata. 2. There is no blooming artifact associated with this lesion on the gradient echo images and therefore, I believe the area is unlikely to represent hemorrhage. Diagnostic considerations include a small mass lesion or demyelinating plaque. Postcontrast MR images are suggested for further evaluation. 3. The lesion does show some increase diffusion weighted signal but this appears to represent T2 shine through with increased signal also identified on the ADC maps. Head MRA 11/27/17 07:12 CONCLUSION: 1. Examination is significantly limited by motion degradation. 2. Proximal M2 branches of the left MCA are not well demonstrated. This is likely artifactual as yesterday's CTA examination demonstrates normal left M2 branches. 3. Otherwise, grossly unremarkable MRA examination of the head. Caprini VTE Risk Assessment Caprini VTE Risk Assessment: No/Low Risk (score <= 1) Caprini Risk Assessment Model: Point Value = 1 Point Value = 2 Point Value = 3 Point Value = 5 Age 41-60 Minor surgery BMI > 25 kg/m2 Swollen legs Varicose veins or History of unexplained or recurrent spontaneous Oral contraceptives or hormone replacement Sepsis (< 1 month) Serious lung disease, including pneumonia (< 1 month) Abnormal pulmonary function Acute myocardial infarction Congestive heart failure (< 1 month) History of inflammatory bowel disease Medical patient at bed rest Age 61-74 Arthroscopic surgery Major open surgery (> 45 min) Laparoscopic surgery (> 45 min) Malignancy Confined to bed (> 72 hours) Immobilizing plaster cast Central venous access Age >= 75 History of VTE Family history of VTE Factor V Leiden Prothrombin [id number] Lupus anticoagulant Anticardiolipin antibodies Elevated serum homocysteine Heparin-induced thrombocytopenia Other congenital or acquired thrombophilia Stroke (< 1 month) Elective arthroplasty Hip, pelvis, or leg fracture Acute spinal cord injury (< 1 month) Prophylaxis Regimen: Total Risk Factor Score Risk Level Prophylaxis Regimen 0-1 Low Early ambulation 2 Moderate Order ONE of the following: *Sequential Compression Device (SCD) *Heparin 5000 units SQ BID 3-4 Higher Order ONE of the following medications: *Heparin 5000 units SQ TID *Enoxaparin/Lovenox 40 mg SQ daily (WT < 150 kg, CrCl > 30 mL/min) *Enoxaparin/Lovenox 30 mg SQ daily (WT < 150 kg, CrCl > 10-29 mL/min) *Enoxaparin/Lovenox 30 mg SQ BID (WT < 150 kg, CrCl > 30 mL/min) AND/OR *Sequential Compression Device (SCD) 5 or more Highest Order ONE of the following medications: *Heparin 5000 units SQ TID (Preferred with Epidurals) *Enoxaparin/Lovenox 40 mg SQ daily (WT < 150 kg, CrCl > 30 mL/min) *Enoxaparin/Lovenox 30 mg SQ daily (WT < 150 kg, CrCl > 10-29 mL/min) *Enoxaparin/Lovenox 30 mg SQ BID (WT < 150 kg, CrCl > 30 mL/min) AND *Sequential Compression Device (SCD) Assessment and Plan - Assessment (1) Paresthesia Code(s): R20.2 - Paresthesia of skin Status: Acute (2) Left-sided weakness Code(s): R53.1 - Weakness Status: Acute (3) Expressive dysphasia Code(s): R47.02 - Dysphasia Status: Acute - Plan CVA/TIA -Patient presented because of neurological symptoms of expressive dysphasia, paresthesia of the left upper extremity, weakness of the left upper extremity, dizziness, tremors -CTA of the brain, CT of the neck did not indicate any acute abnormality -MRI of the brain indicated no abnormality noted in the right anthony radiata. Radiologist requesting contrasted images to further clarify. -MRA of the brain is grossly unremarkable for the head. -Awaiting echocardiogram, contrasted MRI of the brain -Awaiting additional laboratory studies to include lipid panel, B12, folate, sed rate, hemoglobin A1c and TSH, urine drug screen -PT/OT/ST evaluations have been requested -Awaiting neurological consultation. -We will hold off on antiplatelet therapy until MRI of the brain with contrast can be performed due to MRI indicating that there is an area that the radiologist believes is unlikely to represent hemorrhage. DVT prevention -Sequential compression devices
[2017-11-27 13:25] LABS: Barbiturate Screen,Urine Neg (Neg)
[2017-11-27 13:26] LABS: Amphetamine Screen,Urine Neg (Neg); Cannabinoid Screen,Urine Pos (Neg); Cocaine Screen,Urine Neg (Neg)
[2017-11-27] MEDS ORDERED: Gadobutrol PF 7.5 MMOL/7.5 ML Vial (for RAD) IV.SIG ONE (13:26)
[2017-11-27 14:02] LABS: Opiate Screen,Urine Neg (Neg)
[2017-11-27 14:44] LABS: Chol/HDL Ratio 2.52 Ratio; Folate 10.1 ng/mL (3.1-17.5)
--- NOTE | 2017-11-27 15:17 | MR ---
EXAM DATE: 11/27/2017 1:37 PM EDT AGE/SEX: 27 years / Female INDICATIONS: Left sided weakness. Abnormal non-contrast MRI. CLINICAL DATA: This is the patient's initial encounter. Patient reports that signs and symptoms have been present for 1 day and indicates a pain score of 0/10. MEDICAL/SURGICAL HISTORY: None. None. COMPARISON: HP, MR HEAD W/O CONTRAST, 11/27/2017. . TECHNIQUE: Multiplanar, multisequence examination of the brain was performed with 7 ml Gadavist (gado butrol) contrast as a single exam dose. FINDINGS: Because of the focal abnormality identified on the standard MR of the head, additional sequences incl uding a axial T1 pre-, axial T1 post, coronal T1 post and sagittal T2 FLAIR images were obtained. The millimeter area of increased T2 and diminished T1 signal intensity shows absolutely no enhancement f ollowing gadolinium administration. As such, findings are characteristic of a benign parenchymal cyst . Otherwise, MR images of the head are normal CONCLUSION: 8 mm lesion in the right anthony radiata is most characteristic of a benign parenchymal cyst. No enhan cement following gadolinium administration. Electronically signed by: Socrates Johnson MD 11/27/2017 3:16 PM EDT
[2017-11-27 16:20] LABS: Hemoglobin A1c 5.6 % (4.3-6.0)
--- NOTE | 2017-11-27 16:22 | ECG ---
Date Performed: 11/26/2017 Time Performed: 20:58:17 PTAGE: 27 years EKG: Sinus rhythm WITH SINUS ARRHYTHMIA BORDERLINE RIGHT AXIS DEVIATION BORDERLINE ECG Since the PREVIOUS TRACING , no significant change noted PREVIOUS TRACIN08/10/1999 16.32 DOCTOR: Nico Ruiz Interpretating Date/Time 11/27/2017 16:21:19
--- NOTE | 2017-11-27 17:34 | ECHRPT ---
Indication: CVA/TIA CONCLUSIONS The left ventricular systolic function is normal with an estimated ejection fraction in the range of 55-60%. Trace mitral valve regurgitation. There is trace tricuspid valve regurgitation. BP: / HR: Rhythm: MEASUREMENTS (Male / Female) Normal Values Technical Quality: 2D ECHO LV Diastolic Diameter PLAX 4.4 cm 4.2 - 5.9 / 3.9 - 5.3 cm LV Systolic Diameter PLAX 3.2 cm IVS Diastolic Thickness 0.9 cm 0.6 - 1.0 / 0.6 - 0.9 cm LVPW Diastolic Thickness 0.8 cm 0.6 - 1.0 / 0.6 - 0.9 cm LV Relative Wall Thickness 0.4 RV Internal Dim ED PLAX 2.0 cm LA Systolic Diameter LX 2.9 cm 3.0 - 4.0 / 2.7 - 3.8 cm M-MODE Aortic Root Diameter MM 2.6 cm AV Cusp Separation MM 2.3 cm DOPPLER Mitral E Point Velocity 92.3 cm/s Mitral A Point Velocity 46.9 cm/s Mitral E to A Ratio 2.0 TR Peak Velocity 243.0 cm/s TR Peak Gradient 23.6 mmHg Right Atrial Pressure 10.0 mmHg Pulmonary Artery Systolic Pressu 33.6 mmHg Right Ventricular Systolic Press 33.6 mmHg FINDINGS LEFT VENTRICLE Normal left ventricular size. Wall thickness is normal. The left ventricular systolic function is normal with an estimated ejection fraction in the range of 55-60%. RIGHT VENTRICLE Normal right ventricular size and systolic function. LEFT ATRIUM The left atrial size is normal. RIGHT ATRIUM The right atrial size is normal. ATRIAL SEPTUM Normal atrial septal thickness without atrial level shunting by limited color doppler interrogation. AORTA The aortic root and proximal ascending aorta are normal in size on limited imaging. MITRAL VALVE Trace mitral valve regurgitation. Grossly normal mitral valve. AORTIC VALVE Trileaflet aortic valve. No aortic valve stenosis or regurgitation. TRICUSPID VALVE Structurally normal tricuspid valve. There is trace tricuspid valve regurgitation. No tricuspid valve stenosis. PULMONARY VALVE No pulmonary valve regurgitation or stenosis. VESSELS The inferior vena cava is normal in size. Victor Hugo London DO (Electronically Signed) Final Date:27 November 2017 17:33
[2017-11-27] MEDS: Sod Chloride 0.9% Inj 1,000 ML IV.CONT SCH (17:42)
--- NOTE | 2017-11-27 22:17 | MB ---
cc: Shelton Crowell MD, PhD DATE: 11/27/2017 REASON FOR CONSULTATION: Left-sided weakness. HISTORY OF PRESENT ILLNESS: Ms. Pereyra is a 27-year-old female who was in her usual state of health until 2 days ago when she was at a gambling table and apparently suddenly felt hot all over and then was weak in both of her lower extremities with difficulty ambulating. She could not get words out. She had some right-sided visual loss as well and dizziness. She then went home, developed the ability to talk again and then noted paresthesias in the left arm with some weakness of the left arm. This was present yesterday. She had trouble picking up her child in her left arm because of weakness. Symptoms have resolved today, but occasionally, she gets some weakness in left, coming and going. She had no headache. She does have a history of migraine headaches in the past. PAST MEDICAL HISTORY: History of migraine headaches in the past, tubal ligation. MEDICATIONS: Currently are Tylenol p.r.n. PHYSICAL EXAMINATION: VITAL SIGNS: Blood pressure is 109/63, pulse is 58, respiratory rate 18, temperature 96 degrees. NEUROLOGIC: Higher cortical function is normal. Cranial nerves are intact. Motor: She has normal strength in all major groups in both upper and lower extremities. There is no drift. Fine motor skills are normal. Sensory exam is subjectively diminished in the left arm. Reflexes are symmetric. IMAGING DATA: MRI of the brain is reviewed. There is a cystic-appearing structure in the right centrum semiovale. There is no abnormal enhancement. CTA of the head was normal. CTA of the neck was normal. CT brain, no acute change present. LABORATORY DATA: White count 7200, hemoglobin 13.2, hematocrit 39%, platelet count 314,000. Sedimentation rate is 5. PT 10.6, INR 1, aPTT 27.8. Sodium 142, potassium 3.8, chloride 112, CO2 of 25.4, BUN 11, creatinine 0.7, GFR greater than 89, glucose 97, AST 10, ALT 13. Cholesterol 116, LDL 63. IMPRESSION: Neurological symptoms of unknown cause. The finding on the MRI, I think, is unrelated. I think it is probably a benign cystic area; however, would recommend a followup MRI in 3 months. Neurologic migraine would be in the differential. We will also check labs for a hypercoagulable state, including lupus anticoagulant, anticardiolipin antibody panel, protein S, protein C, Leiden factor V. The patient is stable and she could be discharged neurologically tomorrow. Would recommend aspirin 81 mg daily. Shelton Crowell MD, PhD JEROMY/angie , 07:38 PM , 07:44 PM
[2017-11-28] MEDS: Insulin NovoLOG Aspart Correctional Sugar Inj SQ SCH (02:33)
[2017-11-28] MEDS: Sod Chloride 0.9% Inj 1,000 ML IV.CONT SCH (02:34)
[2017-11-28 04:34] VITALS: RESP 16
[2017-11-28] MEDS: Acetaminophen 325 MG Tablet PO PRN (05:20)
--- NOTE | 2017-11-28 08:43 | P.PN ---
Subjective Interval history: 27-year-old female who is seen and examined today in follow-up for acute neurological symptoms. Patient is doing better. Denies any recurrence of symptoms. Patient has undergone full neurological workup with neuro consultation. Patient clinically stable at this time. Vital signs are stable. Patient afebrile. Discussed with patient and mother at bedside all the results, answered all their questions incompleteness, until they acknowledged understanding. Physical Exam Vital signs: Vital Signs 11/27/17 09:00 11/27/17 12:00 11/27/17 16:00 Temperature 96.4 F L 97.2 F L Pulse Rate 45 L 58 L 47 L Respiratory Rate 18 18 Blood Pressure 109/63 110/62 Pulse Oximetry 100 100 11/27/17 19:55 11/27/17 20:00 11/27/17 20:08 Temperature 98.1 F Pulse Rate 56 L 59 L Respiratory Rate 16 Blood Pressure 104/70 Pulse Oximetry 100 98 11/28/17 00:00 11/28/17 02:36 11/28/17 04:00 Temperature 96.3 F L 97.8 F Pulse Rate 51 L 56 L Respiratory Rate 16 18 16 Blood Pressure 98/66 L 108/67 Pulse Oximetry 100 100 Intake & Output 11/27/17 11/28/17 11/28/17 18:59 06:59 18:59 Intake Total 1000 / 1000 1680 / 1680 Balance 1000 / 1000 1680 / 1680 Intake: IV 1000 / 1000 1000 / 1000 NS Inj 1,000 ML @ 70 mls/hr IV. 1000 / 1000 1000 / 1000 CONT .[id number] [facility] Rx#: [id number] Oral 680 / 680 Other: # Voids 3 1 Date of Last Bowel Movement 11/27/17 Narrative: GENERAL: Well-developed, well-nourished, in no acute distress. alert and orientated HEENT: Head is normocephalic without any lesions or masses noted. Facial features are symmetric. Eyes: Extraocular muscles are intact. Conjunctivae were clear. NECK: Supple without any masses. Trachea midline no deviation. No JVD, CARDIAC: Regular rhythm, regular rate. S1/S2 are heard. No murmurs gallops or rubs. LUNGS: Clear to auscultation bilaterally. No wheeze, rhonchi or rales. No use of accessory muscles on inspiration or expiration. ABDOMEN: Soft, nontender. Nondistended. Bowel sounds heard in all 4 quadrants. No organomegaly or masses. Negative rebound, negative guarding EXTREMITIES: No edema, pulses are equal bilaterally. No cyanosis or clubbing NEUROLOGY: Mood and affect appear appropriate. Cranial nerves II through XII grossly intact. Moving all extremities, speech is clear Results - Labs CBC & Chem 7: 11/26/17 20:53 11/27/17 08:55 Laboratory Results - last 24 hr 11/27/17 11/27/17 11/27/17 08:55 08:55 08:55 ESR 5 Sodium 142 Potassium 3.8 Chloride 112 H Carbon Dioxide 25.4 Anion Gap 5 BUN 11 Creatinine 0.70 Estimated GFR Greater than 89 POC Glucose Random Glucose 97 Hemoglobin A1c Calcium 8.2 L Total Bilirubin 0.4 AST 10 L ALT 13 Alkaline Phosphatase 49 Total Protein 6.7 Albumin 3.4 Triglycerides 37 L Cholesterol 116 L LDL Cholesterol, Calc 63 HDL Cholesterol 46.0 Cholesterol/HDL Ratio 2.52 Vitamin B12 407 Folate 10.1 TSH Urine Opiates Screen Ur Barbiturates Screen Ur Amphetamines Screen U Benzodiazepines Scrn Urine Cocaine Screen U Cannabinoids Screen 11/27/17 11/27/17 11/27/17 08:55 08:55 11:51 ESR Sodium Potassium Chloride Carbon Dioxide Anion Gap BUN Creatinine Estimated GFR POC Glucose 106 Random Glucose Hemoglobin A1c 5.6 Calcium Total Bilirubin AST ALT Alkaline Phosphatase Total Protein Albumin Triglycerides Cholesterol LDL Cholesterol, Calc HDL Cholesterol Cholesterol/HDL Ratio Vitamin B12 Folate TSH 0.815 Urine Opiates Screen Ur Barbiturates Screen Ur Amphetamines Screen U Benzodiazepines Scrn Urine Cocaine Screen U Cannabinoids Screen 11/27/17 11/27/17 11/27/17 13:03 17:38 21:59 ESR Sodium Potassium Chloride Carbon Dioxide Anion Gap BUN Creatinine Estimated GFR POC Glucose 136 H 113 H Random Glucose Hemoglobin A1c Calcium Total Bilirubin AST ALT Alkaline Phosphatase Total Protein Albumin Triglycerides Cholesterol LDL Cholesterol, Calc HDL Cholesterol Cholesterol/HDL Ratio Vitamin B12 Folate TSH Urine Opiates Screen Neg Ur Barbiturates Screen Neg Ur Amphetamines Screen Neg U Benzodiazepines Scrn Neg Urine Cocaine Screen Neg U Cannabinoids Screen Pos H - Imaging Impressions Head MRI 11/27/17 00:00 CONCLUSION: 8 mm lesion in the right anthony radiata is most characteristic of a benign parenchymal cyst. No enhancement following gadolinium administration. Head MRI 11/27/17 03:24 CONCLUSION: 1. Isolated, 7.5 mm foci of increased T2 and diminished T1 signal intensity in the right anthony radiata. 2. There is no blooming artifact associated with this lesion on the gradient echo images and therefore, I believe the area is unlikely to represent hemorrhage. Diagnostic considerations include a small mass lesion or demyelinating plaque. Postcontrast MR images are suggested for further evaluation. 3. The lesion does show some increase diffusion weighted signal but this appears to represent T2 shine through with increased signal also identified on the ADC maps. Head MRA 11/27/17 07:12 CONCLUSION: 1. Examination is significantly limited by motion degradation. 2. Proximal M2 branches of the left MCA are not well demonstrated. This is likely artifactual as yesterday's CTA examination demonstrates normal left M2 branches. 3. Otherwise, grossly unremarkable MRA examination of the head. - Procedures ECHOCARDIOGRAM CONCLUSIONS The left ventricular systolic function is normal with an estimated ejection fraction in the range of 55-60%. Trace mitral valve regurgitation. There is trace tricuspid valve regurgitation. Assessment and Plan - Assessment (1) Paresthesia Code(s): R20.2 - Paresthesia of skin Status: Acute (2) Left-sided weakness Code(s): R53.1 - Weakness Status: Acute (3) Expressive dysphasia Code(s): R47.02 - Dysphasia Status: Acute - Plan CVA/TIA -Patient presented because of neurological symptoms of expressive dysphasia, paresthesia of the left upper extremity, weakness of the left upper extremity, dizziness, tremors -CTA of the brain, CT of the neck did not indicate any acute abnormality -MRI of the brain indicated no abnormality noted in the right anthony radiata. Radiologist requesting contrasted images to further clarify. -MRI of the brain with contrast indicated 8 mm lesion in the right anthony radiata most characteristics of benign parenchymal cyst. -MRA of the brain is grossly unremarkable for the head. -Echocardiogram results as above -Additional labs did not indicate any abnormality. Drug screen was positive for cannabinoids -PT/OT/ST evaluations have been performed no outpatient recommendations -Neurological consultation has been performed and indicated possible migraine variant versus TIA. Recommending outpatient follow-up with MRI in 3 months as well as continuation of aspirin DVT prevention -Sequential compression devices Discussed Condition With: Patient, family at bedside Discharge Planning: Discharge home in stable condition Activity: Ad vera. Diet: Regular diet Medication per medication reconciliation Follow-up with primary medical doctor in 1 week
[2017-11-28 08:56] VITALS: BP 115/58; PULSE 50; TEMP 98; O2SAT 99
[2017-11-30 12:20] LABS: Protein C Antigen 91 % (70-150); Protein S Antigen Free 106 % (50 - 160)
[2017-12-01 03:50] LABS: Dil Russell Viper Venom Conf ( ND (NEGATIVE); Dil Russell Viper Venom Time M ND (CORRECTED); Lupus Anticoagulant PTT Screen 42 seconds (< OR = 40)
[2017-12-01 10:56] LABS: Factor V Leiden Mutation Negative (Negative)
== END 2017-11-28 09:15 | disposition home or self-care (01) ==
LOC: PHED 20:13 → PH3 20:13 → PHEDA 20:13 → PH3 11-27 04:46
PROVIDERS: ADMIT Family Medicine; ATTEND Family Medicine
DX: G45.9 Transient cerebral ischemic attack, unspecified; F17.210 Nicotine dependence, cigarettes, uncomplicated

== ENCOUNTER 2018-05-31 17:21 | Observation (INO) ==
[2018-05-31 17:30] VITALS: TEMP 98.1
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
--- NOTE | 2018-05-31 18:57 | XR ---
EXAM DATE: 05/31/2018 6:54 PM EST AGE/SEX: 28 years / Female INDICATIONS: Chest pain. CLINICAL DATA: This is the patient's initial encounter. Patient reports that signs and symptoms have been present for 1 day and indicates a pain score of 10/10. MEDICAL/SURGICAL HISTORY: Stroke. section. COMPARISON: [facility], CHEST 1V SINGLE AP, 11/26/2017. . FINDINGS: A single AP view of the chest demonstrates the lungs to be symmetrically aerated without evidence of mass, infiltrate or effusion. The cardiomediastinal contours are unremarkable. Osseous structures a re intact. CONCLUSION: 1. No acute cardiopulmonary disease. Electronically signed by: Wesly Beatty MD Board Certified Radiologist 05/31/2018 6:55 PM EST
[2018-05-31 18:58] LABS: Baso % (Auto) 0.6 % (0.0-2.0); Eos % (Auto) 0.7 % (0.0-4.0); Hemoglobin 12.5 gm/dL (11.6-15.3); Lymph # (Auto) 1.8 th/mm3 (1.0-4.8); Lymph % (Auto) 24.7 % (9.0-44.0); Mean Corpuscular HGB Conc 33.8 % (32.0-36.0); Mean Corpuscular Hemoglobin 32.4 pg (27.0-34.0); Mean Corpuscular Volume 95.9 fL (80.0-100.0); Mean Platelet Volume 7.7 fL (7.0-11.0); Mono # (Auto) 0.6 th/mm3 (0.0-0.9); Mono % (Auto) 7.6 % (0.0-8.0); Neut # (Auto) 4.8 th/mm3 (1.8-7.7); Neut % (Auto) 66.4 % (16.0-70.0); Platelet Count 317 th/mm3 (150-450); Red Blood Count 3.85 mil/mm3 (4.00-5.30); Red Cell Distribution Width 12.9 % (11.6-17.2); White Blood Count 7.2 th/mm3 (4.0-11.0)
[2018-05-31 19:14] LABS: Albumin 3.9 g/dL (3.4-5.0); Anion Gap 4 meq/L (5-15); Aspartate Aminotransferase 13 U/L (15-37); Blood Urea Nitrogen 10 mg/dL (7-18); Calcium 8.5 mg/dL (8.5-10.1); Carbon Dioxide 25.9 meq/L (21.0-32.0); Chloride 109 meq/L (98-107); Glomerular Filtration Rate Greater Than 89 mL/min (>89); Glucose,Random 85 mg/dL (74-106); Magnesium 2.2 mg/dL (1.5-2.5); Potassium 3.5 meq/L (3.5-5.1); Sodium 139 meq/L (136-145)
[2018-05-31 19:15] LABS: Alanine Aminotransferase 17 U/L (10-53)
[2018-05-31 19:19] LABS: Alkaline Phosphatase 51 U/L (45-117); Creatine Kinase 105 U/L (26-192); Total Protein 7.5 g/dL (6.4-8.2); Troponin I 0.02 ng/mL (0.02-0.05)
[2018-05-31 20:22] VITALS: BP 99/68; PULSE 58; RESP 18; O2SAT 99
[2018-05-31] MEDS ORDERED: Acetaminophen 500 MG Tablet PO PRN (22:27)
--- NOTE | 2018-06-01 14:48 | ECG ---
Date Performed: 05/31/2018 Time Performed: 17:36:08 PTAGE: 28 years EKG: Sinus rhythm WITH SINUS ARRHYTHMIA NORMAL ECG Since the PREVIOUS TRACING , no significant change noted PREVIOUS TRACIN11/26/2017 20.58 DOCTOR: Nadira Stauffer Interpretating Date/Time 06/04/2018 06:54:11
--- NOTE | 2018-06-01 19:35 | ECG ---
Date Performed: 05/31/2018 Time Performed: 21:34:55 PTAGE: 28 years EKG: SINUS BRADYCARDIA WITH SINUS ARRHYTHMIA BORDERLINE RIGHT AXIS DEVIATION BORDERLINE ECG In c omparison, probably no significant change.I would make sure limb leads were accurately placed. PREVIOUS TRACING : 05/31/2018 17.36 DOCTOR: Colt Griffin Interpretating Date/Time 06/01/2018 19:34:22
== END 2018-05-31 23:50 | disposition left against medical advice (07) ==
LOC: NEDA 17:21 → NEPC 17:21 → NEDA 23:49
PROVIDERS: ADMIT Internal Medicine Interventional Cardiology; ATTEND Internal Medicine Interventional Cardiology
DX: Z86.73 Personal history of transient ischemic attack (TIA), and cerebral infarction without residual deficits; R07.9 Chest pain, unspecified; F17.200 Nicotine dependence, unspecified, uncomplicated
CPT/HCPCS: G0378